=== PATIENT | female | born 1975 | race Caucasian/White ===

== ENCOUNTER 2017-08-31 09:35 | Emergency (ER) | payer OTHER ==
[2017-08-31] MEDS ORDERED: RX INFO: IV CONTRAST WAS GIVEN 1 EACH MISC MISCELLANE PRN (10:00)
[2017-08-31] MEDS ORDERED: SODIUM CHLORIDE 0.9% 1,000 ML IV STA (10:00)
--- NOTE | 2017-08-31 10:02 | ED ---
General Adult HPI - General Chief complaint: Vaginal Bleeding Stated complaint: Urogenital Time Seen by Provider: 08/31/17 09:47 Source: patient, RN notes reviewed Mode of arrival: ambulatory Limitations: no limitations - History of Present Illness Initial comments: 42-year-old female presents to the emergency department with a chief complaint of vaginal bleeding. Patient recently had a D&C done by a doctor out of [place] 2 weeks ago. Patient states she is having some vaginal bleeding. Patient states that initially following the procedure she had some bleeding seemed to get better but now it has worsened. She states she goes to the pad about every hour. She called the nurse and they referred her here. She states she does have some dizziness. She is a heart patient does take aspirin states she chronically of dizziness about but this seems different. She states that she has been to the hospital and sent for this before they sent her home she is here today because it just does not seem to get better. She denies any pain with this. Patient denies any recent fever, chills, shortness of breath, chest pain, back pain, abdominal pain, nausea vomiting, numbness or tingling, dysuria or hematuria, constipation or diarrhea, headaches or visual changes, or any other current symptoms. - Related Data Home Medications Medication Instructions Recorded Confirmed ALPRAZolam [Xanax] 2 mg PO TID PRN 07/16/14 08/31/17 Montelukast Sodium [Singulair] 10 mg PO HS 07/16/14 08/31/17 Ranitidine HCl [Zantac] 150 mg PO BID 07/16/14 08/31/17 Spironolactone [Aldactone] 12.5 mg PO DAILY 07/16/14 08/31/17 oxyCODONE HCL/ACETAMINOPHEN 1 tab PO Q6H PRN 07/16/14 08/31/17 [Percocet 10-325 mg] Albuterol Nebulized [Ventolin 2.5 mg INHALATION RT-TID 10/20/14 08/31/17 Nebulized] Budesonide [Pulmicort] 0.5 mg INHALATION RT-BID 11/24/14 08/31/17 Nitroglycerin Sl Tabs [Nitrostat] 0.4 mg SUBLINGUAL Q5M PRN 11/24/14 08/31/17 Albuterol Inhaler [Ventolin Hfa 2 puff INHALATION RT-Q4H PRN 08/31/17 08/31/17 Inhaler] Aspirin EC [Ecotrin Low Dose] 81 mg PO DAILY 08/31/17 08/31/17 Atorvastatin [Lipitor] 40 mg PO HS 08/31/17 08/31/17 Fluticasone Nasal [place] [Flonase 1 spray EA NOSTRIL BID 08/31/17 08/31/17 Nasal [place]] Ipratropium [place] 0.06%Nasal 2 spray EA NOSTRIL BID 08/31/17 08/31/17 [Atrovent Nasal 0.06%] Omalizumab [Xolair] 150 mg SQ Q14D 08/31/17 08/31/17 Sotalol [Betapace] 80 mg PO BID 08/31/17 08/31/17 Triamterene/Hydrochlorothiazid 1 cap PO DAILY 08/31/17 08/31/17 [Dyazide 37.5-25 Capsule] Vortioxetine Hydrobromide 5 mg PO DAILY 08/31/17 08/31/17 [Trintellix] Allergies Allergy/AdvReac Type Severity Reaction Status Date / Time codeine Allergy Rash/Hives Verified 08/31/17 10:03 fexofenadine HCl Allergy Rash/Hives Verified 08/31/17 10:03 [From Sybil] metronidazole [From Flagyl] Allergy Unknown Verified 08/31/17 10:03 mirtazapine [From Remeron] Allergy Rash/Hives Verified 08/31/17 10:03 pregabalin [From Lyrica] Allergy BLURRED Verified 08/31/17 10:03 VISION/HEADACHES Review of Systems ROS Statement: Those systems with pertinent positive or pertinent negative responses have been documented in the HPI. ROS Other: All systems not noted in ROS Statement are negative. Past Medical History Past Medical History: Asthma, Coronary Artery Disease (CAD), Chest Pain / Angina , Heart Failure, COPD, Fibromyalgia, GERD/Reflux, Hyperlipidemia, Sleep Apnea/ CPAP/BIPAP Additional Past Medical History / Comment(s): hx migraines, SOB, no CPAP yet- recent dx of sleep apnea History of Any Multi-Drug Resistant Organisms: None Reported Past Surgical History: AICD, Hysterectomy Additional Past Surgical History / Comment(s): defibrillator, D&C, lipoma removed left thigh, left breast lumpectomy, bladder sling Past Anesthesia/Blood Transfusion Reactions: No Reported Reaction Type of Cardiac Device: AICD Device Placement Date:: 10/04/2014 Past Psychological History: Anxiety Smoking Status: Current some day smoker Past Alcohol Use History: None Reported Past Drug Use History: None Reported - Past Family History Mother Family Medical History: No Reported History Father Family Medical History: Myocardial Infarction ([place]) General Exam - General Exam Comments Initial Comments: General: The patient is awake and alert, in no distress, and does not appear acutely ill. Eye: Pupils are equal, round and reactive to light, extra-ocular movements are intact; there is normal conjunctiva bilaterally. No signs of icterus. Ears, nose, mouth and throat: There are moist mucous membranes. Neck: The neck is supple, there is no tenderness. Cardiovascular: There is a regular rate and rhythm. No murmur, rub or gallop is appreciated. Respiratory: Lungs are clear to auscultation, respirations are non-labored, breath sounds are equal. No wheezes, stridor, rales, or rhonchi. Gastrointestinal: Soft, non-distended, non-tender abdomen without masses or organomegaly noted. There is no rebound or guarding present. No CVA tenderness. Bowel sounds are unremarkable. Back: There is no tenderness to palpation in the midline. There is no obvious deformity. No rashes noted. Musculoskeletal: Normal ROM, no tenderness, There is no pedal edema. There is no calf tenderness or swelling. Sensation intact. Pulses equal bilaterally 2+. Neurological: CN II-XII intact, There are no obvious motor or sensory deficits. Coordination appears grossly intact. Speech is normal. Skin: Skin is warm and dry and no rashes or lesions are noted. Psychiatric: Cooperative, appropriate mood & affect, normal judgment. Limitations: no limitations External exam: Present: normal external exam Speculum exam: Present: normal speculum exam, vaginal bleeding (Patient does appear to have sutures intact with a little bit of oozing from the suture site.) Course Vital Signs 08/31/17 08/31/17 09:40 11:03 Temperature 98.8 F Pulse Rate 80 91 Respiratory 18 18 Rate Blood Pressure 134/78 115/75 O2 Sat by Pulse 100 99 Oximetry Medical Decision Making - Medical Decision Making 42-year-old female presents for vaginal bleeding following a hysterectomy. At this time pelvic exam does show some mild oozing from the surgical incision site. At this time lab work is otherwise stable. This time the patient's urine is not suspicious and patient's symptoms are not suspicious for UTI. We will send urine for culture and follow-up as appropriate. We did discuss return parameters all questions. The patient stated that she understood and she is in agreement this plan. She will be discharged. - Lab Data Result diagrams: 08/31/17 10:04 08/31/17 10:04 Lab Results 08/31/17 08/31/17 08/31/17 Range/Units 10:04 10:04 10:04 WBC 16.0 H (3.8-10.6) k/uL RBC 4.35 (3.80-5.40) m/uL Hgb 14.3 (11.4-16.0) gm/dL Hct 42.5 (34.0-46.0) % MCV 97.9 (80.0-100.0) fL MCH 33.0 (25.0-35.0) pg MCHC 33.7 (31.0-37.0) g/dL RDW 13.4 (11.5-15.5) % Plt Count 382 (150-450) k/uL Neutrophils % 81 % Lymphocytes % 12 % Monocytes % 3 % Eosinophils % 3 % Basophils % 1 % Neutrophils # 13.0 H (1.3-7.7) k/uL Lymphocytes # 2.0 (1.0-4.8) k/uL Monocytes # 0.4 (0-1.0) k/uL Eosinophils # 0.5 (0-0.7) k/uL Basophils # 0.1 (0-0.2) k/uL PT (9.0-12.0) sec INR (<1.2) APTT (22.0-30.0) sec Sodium 140 (137-145) mmol/L Potassium 4.2 (3.5-5.1) mmol/L Chloride 106 (98-107) mmol/L Carbon Dioxide 25 (22-30) mmol/L Anion Gap 9 mmol/L BUN 22 H (7-17) mg/dL Creatinine 0.83 (0.52-1.04) mg/dL Est GFR (MDRD) Af Amer >60 (>60 ml/min/1.73 sqM) Est GFR (MDRD) Non-Af >60 (>60 ml/min/1.73 sqM) Glucose 106 H (74-99) mg/dL Calcium 10.0 (8.4-10.2) mg/dL Total Bilirubin 0.8 (0.2-1.3) mg/dL AST 26 (14-36) U/L ALT 38 (9-52) U/L Alkaline Phosphatase 64 (38-126) U/L Total Protein 7.7 (6.3-8.2) g/dL Albumin 4.3 (3.5-5.0) g/dL Urine Color Urine Appearance (Clear) Urine pH (5.0-8.0) Ur Specific [place] (1.001-1.035) Urine Protein (Negative) Urine Glucose (UA) (Negative) Urine Ketones (Negative) Urine Blood (Negative) Urine Nitrite (Negative) Urine Bilirubin (Negative) Urine Urobilinogen (<2.0) mg/dL Ur Leukocyte Esterase (Negative) Urine RBC (0-5) /hpf Urine WBC (0-5) /hpf Ur Squamous Epith Cells (0-4) /hpf Urine Mucus (None) /hpf Blood Type O Positive Blood Type Recheck O Pos Antibody Screen NEGATIVE Spec Expiration Date 09/03/2017230308/31/17 08/31/17 Range/Units 10:04 11:01 WBC (3.8-10.6) k/uL RBC (3.80-5.40) m/uL Hgb (11.4-16.0) gm/dL Hct (34.0-46.0) % MCV (80.0-100.0) fL MCH (25.0-35.0) pg MCHC (31.0-37.0) g/dL RDW (11.5-15.5) % Plt Count (150-450) k/uL Neutrophils % % Lymphocytes % % Monocytes % % Eosinophils % % Basophils % % Neutrophils # (1.3-7.7) k/uL Lymphocytes # (1.0-4.8) k/uL Monocytes # (0-1.0) k/uL Eosinophils # (0-0.7) k/uL Basophils # (0-0.2) k/uL PT 10.0 (9.0-12.0) sec INR 1.0 (<1.2) APTT 23.6 (22.0-30.0) sec Sodium (137-145) mmol/L Potassium (3.5-5.1) mmol/L Chloride (98-107) mmol/L Carbon Dioxide (22-30) mmol/L Anion Gap mmol/L BUN (7-17) mg/dL Creatinine (0.52-1.04) mg/dL Est GFR (MDRD) Af Amer (>60 ml/min/1.73 sqM) Est GFR (MDRD) Non-Af (>60 ml/min/1.73 sqM) Glucose (74-99) mg/dL Calcium (8.4-10.2) mg/dL Total Bilirubin (0.2-1.3) mg/dL AST (14-36) U/L ALT (9-52) U/L Alkaline Phosphatase (38-126) U/L Total Protein (6.3-8.2) g/dL Albumin (3.5-5.0) g/dL Urine Color Light Yellow Urine Appearance Clear (Clear) Urine pH 6.0 (5.0-8.0) Ur Specific [place] 1.024 (1.001-1.035) Urine Protein Negative (Negative) Urine Glucose (UA) Negative (Negative) Urine Ketones Negative (Negative) Urine Blood Large H (Negative) Urine Nitrite Negative (Negative) Urine Bilirubin Negative (Negative) Urine Urobilinogen <2.0 (<2.0) mg/dL Ur Leukocyte Esterase Large H (Negative) Urine RBC 6 H (0-5) /hpf Urine WBC 8 H (0-5) /hpf Ur Squamous Epith Cells 5 H (0-4) /hpf Urine Mucus Rare H (None) /hpf Blood Type Blood Type Recheck Antibody Screen Spec Expiration Date - Radiology Data Radiology results: report reviewed, image reviewed Disposition Clinical Impression: Vaginal bleeding Disposition: HOME SELF-CARE Condition: Stable Instructions: Dysfunctional Uterine Bleeding (ED) Additional Instructions: Please use medication as discussed. Please follow up with family doctor if symptoms have not improved over the next two days. Please return to the emergency room if your symptoms increase or worsen or for any other concerns. Please follow up with your OBGYN. Referrals: Daniel English DO [Primary Care Provider] - 1-2 days Time of Disposition: 11:39
[2017-08-31 10:21] LABS: Basophils # (A) 0.1 k/uL (0-0.2); Basophils % (A) 1 %; CH 32.6; CHCM 33.5; Eosinophils # (A) 0.5 k/uL (0-0.7); Eosinophils % (A) 3 %; HCT 42.5 % (34.0-46.0); HDW 2.06; HGB 14.3 gm/dL (11.4-16.0); Luc # (Auto) 0.08; Luc % (Auto) 1; Lymphocytes % (A) 12 %; MCHC 33.7 g/dL (31.0-37.0); MCV 97.9 fL (80.0-100.0); Mean Platelet Volume 6.8; Monocytes # (A) 0.4 k/uL (0-1.0); Monocytes % (A) 3 %; Neutrophils % (A) 81 %; RBC 4.35 m/uL (3.80-5.40); RDW 13.4 % (11.5-15.5); WBC (Perox) 15.35
[2017-08-31 10:24] LABS: Partial Thromboplastin Time 23.6 sec (22.0-30.0)
[2017-08-31 10:27] LABS: ALT 38 U/L (9-52); AST 26 U/L (14-36); Alkaline Phosphatase 64 U/L (38-126); Anion Gap 9 mmol/L; Blood Urea Nitrogen 22 mg/dL (7-17); Carbon Dioxide 25 mmol/L (22-30); Chloride 106 mmol/L (98-107); Glucose 106 mg/dL (74-99); Non-African American GFR(MDRD) >60 (>60 ml/min/1.73 sqM); Potassium 4.2 mmol/L (3.5-5.1); Sodium 140 mmol/L (137-145); Total Bilirubin 0.8 mg/dL (0.2-1.3); Total Protein 7.7 g/dL (6.3-8.2)
--- NOTE | 2017-08-31 10:45 | CT ---
EXAMINATION TYPE: CT abdomen pelvis w con DATE OF EXAM: 08/31/2017 COMPARISON: 05/17/2016 HISTORY: S/P hysterectomy, bleeding and cramping CT DLP: 485.20 mGycm Automated exposure control for dose reduction was used. CONTRAST: CT scan of the abdomen pelvis is performed with IV Contrast, patient injected with 100 mL of Omnipaqu e 300. FINDINGS- LUNG BASES-there are a couple of 2 mm right lower lobe pulmonary nodules which are stable from the pr evious exam. Cardiac leads noted. LIVER/GB-tiny hypodensity involving the dome of the liver is too small to characterize. PANCREAS- No gross abnormality is seen. SPLEEN- No gross abnormality is seen. ADRENALS- No gross abnormality is seen. KIDNEYS/BLADDER- no hydronephrosis or nephrolithiasis. There is a somewhat heterogeneous enhancement pattern kidneys particularly lower pole right kidney is sometimes be associated with pyelonephritis c orrelate with urinalysis.. BOWEL- no bowel dilatation. Normal appendix. LYMPH NODES- No greater than 1cm abdominal or pelvic lymph nodes are appreciated. OSSEOUS STRUCTURES- No significant abnormality is seen. OTHER- there is a small fat-containing periumbilical hernia. Findings suggest previous hysterectomy. No abnormal fluid collections. IMPRESSION- 1. Slight ill attenuation focally involving the left colon within the pericolonic fat without evidenc e of discrete wall thickening. A mild colitis or diverticulitis not excluded. 2. Nonspecific somewhat heterogeneous enhancement pattern of the kidneys can occasionally be associat ed with pyelonephritis. Finding could be technical. Correlate with urinalysis. 3. Findings suggest previous hysterectomy.
[2017-08-31 11:24] LABS: Appearance,Urine Clear (Clear); Bilirubin,Urine Negative (Negative); Glucose,Urine (UA) Negative (Negative); Ketones,Urine Negative (Negative); Leukocyte Esterase,Urine Large (Negative); Mucus,Urine Rare /hpf; Nitrite,Urine Negative (Negative); Particle Count 2008; Protein,Urine Negative (Negative); RBC,Urine 6 /hpf (0-5); Specific Gravity,Urine 1.024 (1.001-1.035); Squamous Epithelial Cell,Urine 5 /hpf (0-4); UA Billing (MACRO vs. MICRO) MICRO; Urobilinogen,Urine <2.0 mg/dL (<2.0); WBC,Urine 8 /hpf (0-5)
[2017-08-31 11:47] VITALS: BP 117/73; PULSE 62; RESP 16; TEMP 98.7
== END 2017-08-31 11:57 | disposition home or self-care (01) ==
LOC: EC 09:35
DX: N93.9 Abnormal uterine and vaginal bleeding, unspecified (principal); R42 Dizziness and giddiness; J44.9 Chronic obstructive pulmonary disease, unspecified; I25.119 Atherosclerotic heart disease of native coronary artery with unspecified angina pectoris; I50.9 Heart failure, unspecified; I11.0 Hypertensive heart disease with heart failure; M79.7 Fibromyalgia; K21.9 Gastro-esophageal reflux disease without esophagitis; E78.5 Hyperlipidemia, unspecified; G47.30 Sleep apnea, unspecified; Z99.89 Dependence on other enabling machines and devices; F41.9 Anxiety disorder, unspecified; F17.200 Nicotine dependence, unspecified, uncomplicated; Z79.51 Long term (current) use of inhaled steroids; Z79.82 Long term (current) use of aspirin; Z79.899 Other long term (current) drug therapy; Z88.5 Allergy status to narcotic agent; Z88.1 Allergy status to other antibiotic agents; Z88.8 Allergy status to other drugs, medicaments and biological substances; Z90.710 Acquired absence of both cervix and uterus
CPT/HCPCS: 36415; 86900; 86901; 80053; 85025; 85610; 85730; 86850; 81001; 87086; 74177; 99284; 96360; Q9967

== ENCOUNTER → 2018-01-05 | Outpatient (CLI) | payer OTHER ==
--- NOTE | 2018-01-05 13:16 | XR ---
EXAMINATION TYPE: XR chest 2V DATE OF EXAM: 01/05/2018 COMPARISON: Prior chest x-ray 11/24/2014 HISTORY: Shortness of breath and cough TECHNIQUE: Frontal and lateral views of the chest are obtained. FINDINGS: Generator is present in the left pectoral region, there are leads in the right ventricle a nd atrium, coronary sinus as on prior exam. No pneumothorax or pleural effusion. Cardiac mediastinal silhouette, pulmonary vascularity and brooks within normal limits. There are prominent lung volumes. Mi nimal patchy density at the costophrenic angle on the left could reflect atelectasis, correlate to ex clude airspace disease. IMPRESSION: Suspect atelectasis or scar, correlate to exclude pneumonia.
== END | disposition home or self-care (01) ==
LOC: RADXRMAIN 11:52
PROVIDERS: ATTEND Internal Medicine Pulmonary Disease
DX: R06.00 Dyspnea, unspecified (principal); J44.9 Chronic obstructive pulmonary disease, unspecified; J45.909 Unspecified asthma, uncomplicated
CPT/HCPCS: 71046

== ENCOUNTER → 2018-03-31 | Outpatient (CLI) | payer OTHER ==
[2018-03-31 12:02] LABS: HGB 14.7 gm/dL (11.4-16.0); MCH 33.4 pg (25.0-35.0); MCHC 33.6 g/dL (31.0-37.0); MCV 99.5 fL (80.0-100.0); Mean Platelet Volume 6.5; Platelet Count 296 k/uL (150-450); RBC 4.42 m/uL (3.80-5.40); RDW 13.1 % (11.5-15.5)
[2018-03-31 12:13] LABS: Anion Gap 10 mmol/L; Blood Urea Nitrogen 25 mg/dL (7-17); Carbon Dioxide 28 mmol/L (22-30); Chloride 104 mmol/L (98-107); Glucose 94 mg/dL (74-99); Potassium 4.5 mmol/L (3.5-5.1); Sodium 142 mmol/L (137-145)
== END | disposition home or self-care (01) ==
LOC: LABWHC1 11:08
PROVIDERS: ATTEND Internal Medicine Cardiovascular Disease
DX: E78.00 Pure hypercholesterolemia, unspecified (principal); I10 Essential (primary) hypertension; I47.2 Ventricular tachycardia; I50.42 Chronic combined systolic (congestive) and diastolic (congestive) heart failure
CPT/HCPCS: 36415; 80048; 83880; 84443; 85027

== ENCOUNTER → 2018-11-23 | Outpatient (CLI) | payer OTHER ==
[2018-11-23 10:41] LABS: HCT 45.2 % (34.0-46.0); HGB 14.7 gm/dL (11.4-16.0); MCH 31.8 pg (25.0-35.0); MCHC 32.4 g/dL (31.0-37.0); Mean Platelet Volume 6.7; Platelet Count 330 k/uL (150-450); RBC 4.61 m/uL (3.80-5.40); RDW 12.8 % (11.5-15.5); WBC 6.8 k/uL (3.8-10.6)
[2018-11-23 16:36] LABS: Anion Gap 8.1 mmol/L (4.00-12.00); Calcium 9.6 mg/dL (8.7-10.3); Carbon Dioxide 26.9 mmol/L (21.6-31.8); LDL Cholesterol,Calculated 94.2 mg/dL (0.0-131.0); VLDL Calculation 22.8 mg/dL (5.00-40.00)
== END | disposition home or self-care (01) ==
LOC: LABWHC1 09:15
PROVIDERS: ATTEND Internal Medicine Cardiovascular Disease
DX: E78.00 Pure hypercholesterolemia, unspecified (principal); I50.22 Chronic systolic (congestive) heart failure; R06.02 Shortness of breath; R53.83 Other fatigue
CPT/HCPCS: 36415; 80048; 80061; 83880; 85027

== ENCOUNTER → 2019-01-10 | Outpatient (CLI) | payer OTHER ==
[2019-01-10 16:16] LABS: Basophils % (A) 1 %; Eosinophils # (A) 0.4 k/uL (0-0.7); Eosinophils % (A) 5 %; HCT 43.8 % (34.0-46.0); HGB 14.1 gm/dL (11.4-16.0); Lymphocytes % (A) 28 %; MCH 31.4 pg (25.0-35.0); MCHC 32.2 g/dL (31.0-37.0); MCV 97.6 fL (80.0-100.0); Mean Platelet Volume 6.8; Monocytes # (A) 0.3 k/uL (0-1.0); Monocytes % (A) 4 %; Neutrophils # (A) 4.4 k/uL (1.3-7.7); Neutrophils % (A) 61 %; Platelet Count 328 k/uL (150-450); RBC 4.49 m/uL (3.80-5.40); RDW 12.8 % (11.5-15.5); WBC 7.3 k/uL (3.8-10.6)
[2019-01-10 22:46] LABS: Iron Saturation 22.97 (12.00-45.00)
[2019-01-10 22:53] LABS: Albumin 4.4 g/dL (3.80-4.90); Albumin/Globulin Ratio 2.2 (1.60-3.17); Anion Gap 7.5 mmol/L (4.00-12.00); Calcium 9.4 mg/dL (8.7-10.3); Carbon Dioxide 25.5 mmol/L (21.6-31.8); Total Bilirubin 0.3 mg/dL (0.3-1.2); Total Protein 6.4 g/dL (6.2-8.2)
== END | disposition home or self-care (01) ==
LOC: LABWHC1 15:50
PROVIDERS: ATTEND Internal Medicine Hematology & Oncology
DX: D50.9 Iron deficiency anemia, unspecified (principal); D47.2 Monoclonal gammopathy; R31.9 Hematuria, unspecified
CPT/HCPCS: 36415; 80053; 82607; 82728; 82746; 83540; 83550; 85025

== ENCOUNTER → 2019-02-15 | Outpatient (CLI) | payer OTHER ==
--- NOTE | 2019-02-15 13:44 | CT ---
EXAMINATION TYPE: CT chest wo con DATE OF EXAM: 02/15/2019 COMPARISON: None HISTORY: Severe persistent asthma, coughing up blood CT DLP: 652.4 mGycm, Automated exposure control for dose reduction was used. CONTRAST: Performed injected with 0 mL of Isovue 300. TECHNIQUE: Axial images were obtained at 5 mm thick sections. Reconstructed images are reviewed on [employer] computer in the coronal plane. FINDINGS: Portion of the thyroid visualized is normal. No suspicious lung nodules or focal infiltrates are present. Tracheobronchial tree is visualized appe ars normal No enlarged mediastinal or hilar adenopathy is evident. The ascending aorta diameter at the level o f the main pulmonary artery is 2.9 cm. The main pulmonary artery diameter at the bifurcation is 2.[address] sections are obtained through the upper abdomen. Abdomen is essentially unremarkable. IMPRESSIONS: 1. No acute abnormality CT thorax
== END ==
LOC: RADCTMAIN 08:10
PROVIDERS: ATTEND Internal Medicine Pulmonary Disease
DX: J45.51 Severe persistent asthma with (acute) exacerbation (principal); E66.01 Morbid (severe) obesity due to excess calories
CPT/HCPCS: 71250

== ENCOUNTER → 2019-05-01 | Outpatient (CLI) | payer OTHER ==
[2019-05-01 14:35] LABS: Basophils % (A) 0 %; Eosinophils % (A) 0 %; HCT 41.1 % (34.0-46.0); HGB 13.4 gm/dL (11.4-16.0); Lymphocytes % (A) 26 %; MCHC 32.5 g/dL (31.0-37.0); MCV 95.2 fL (80.0-100.0); Mean Platelet Volume 6.9; Monocytes # (A) 0.4 k/uL (0-1.0); Monocytes % (A) 5 %; Neutrophils % (A) 67 %; Platelet Count 366 k/uL (150-450); RBC 4.32 m/uL (3.80-5.40); RDW 14.4 % (11.5-15.5); WBC 7.6 k/uL (3.8-10.6)
[2019-05-01 18:30] LABS: Iron Saturation 37.76 (12.00-45.00)
[2019-05-01 18:35] LABS: African American GFR (CKD) 79.3 (60.0-200.0); Albumin 4.4 g/dL (3.80-4.90); Albumin/Globulin Ratio 2.2 (1.60-3.17); Anion Gap 9.4 mmol/L (4.00-12.00); Calcium 9.5 mg/dL (8.7-10.3); Carbon Dioxide 25.6 mmol/L (21.6-31.8); LDL Cholesterol,Calculated 122.6 mg/dL (0.0-131.0); Potassium 4.4 mmol/L (3.5-5.5); Total Bilirubin 0.5 mg/dL (0.2-1.2); Total Protein 6.4 g/dL (6.2-8.2); VLDL Calculation 27.4 mg/dL (5.00-40.00)
[2019-05-01 18:44] LABS: T4, Free (Free Thyroxine) 1.2 ng/dL (0.80-1.80)
[2019-05-01 18:59] LABS: Folate, Serum >24.0 ng/mL
== END | disposition home or self-care (01) ==
LOC: LABWHC1 13:42
PROVIDERS: ATTEND Internal Medicine Hematology & Oncology
DX: D50.9 Iron deficiency anemia, unspecified (principal); D47.2 Monoclonal gammopathy; R31.9 Hematuria, unspecified; E78.00 Pure hypercholesterolemia, unspecified; I42.8 Other cardiomyopathies; R07.89 Other chest pain; I50.22 Chronic systolic (congestive) heart failure; Z95.810 Presence of automatic (implantable) cardiac defibrillator
CPT/HCPCS: 36415; 80053; 80061; 82607; 82728; 82746; 83540; 83550; 84439; 84443; 84481; 85025

== ENCOUNTER → 2019-09-04 | Outpatient (CLI) | payer OTHER ==
[2019-09-04 12:47] LABS: Basophils % (A) 0 %; Eosinophils % (A) 0 %; HCT 42.6 % (34.0-46.0); HGB 14.1 gm/dL (11.4-16.0); Lymphocytes # (A) 1.9 k/uL (1.0-4.8); Lymphocytes % (A) 20 %; MCH 31.7 pg (25.0-35.0); MCHC 33.1 g/dL (31.0-37.0); MCV 95.8 fL (80.0-100.0); Mean Platelet Volume 6.3; Monocytes # (A) 0.4 k/uL (0-1.0); Monocytes % (A) 4 %; Neutrophils # (A) 7.2 k/uL (1.3-7.7); Neutrophils % (A) 75 %; Platelet Count 341 k/uL (150-450); RBC 4.44 m/uL (3.80-5.40); RDW 13.3 % (11.5-15.5); WBC 9.6 k/uL (3.8-10.6)
[2019-09-04 18:31] LABS: % Iron Saturation 31.36 (12.00-45.00); ALT 16 U/L (8-44); AST 19 U/L (13-35); African American GFR (CKD) 78.8 (60.0-200.0); Alkaline Phosphatase 74 U/L (41-126); Calcium 9.8 mg/dL (8.7-10.3); Carbon Dioxide 28.2 mmol/L (21.6-31.8); Chloride 104 mmol/L (96-109); Globulin 2.3 g/dL (1.6-3.3); Glucose 103 mg/dL (70-110); Iron 90 ug/dL (50-170); Potassium 3.9 mmol/L (3.5-5.5); Sodium 139 mmol/L (135-145); Total Bilirubin 0.6 mg/dL (0.2-1.2); Total Iron Binding Capacity 287 ug/dL (228-460); Total Protein 6.9 g/dL (6.2-8.2)
[2019-09-04 19:15] LABS: Ferritin 341.6 ng/mL (10.0-291.0); Folate, Serum >24.0 ng/mL
== END | disposition home or self-care (01) ==
LOC: LABWHC1 11:55
PROVIDERS: ATTEND Internal Medicine Hematology & Oncology
DX: D50.9 Iron deficiency anemia, unspecified (principal); D47.2 Monoclonal gammopathy; R31.9 Hematuria, unspecified
CPT/HCPCS: 36415; 80053; 82607; 82728; 82746; 83540; 83550; 85025

== ENCOUNTER → 2019-11-05 | Outpatient (CLI) | payer OTHER ==
[2019-11-05 12:47] LABS: HGB 13.9 gm/dL (11.4-16.0); MCHC 33.8 g/dL (31.0-37.0); MCV 97.6 fL (80.0-100.0); Mean Platelet Volume 6.8; Platelet Count 365 k/uL (150-450); RBC 4.21 m/uL (3.80-5.40); WBC 11.3 k/uL (3.8-10.6)
[2019-11-05 21:49] LABS: African American GFR (CKD) 78.8 (60.0-200.0); Anion Gap 7.9 mmol/L (4.00-12.00); Calcium 10.1 mg/dL (8.7-10.3); Carbon Dioxide 28.1 mmol/L (21.6-31.8); Potassium 4.4 mmol/L (3.5-5.5)
== END | disposition home or self-care (01) ==
LOC: LABWHC1 11:32
PROVIDERS: ATTEND Internal Medicine Cardiovascular Disease
DX: I51.9 Heart disease, unspecified (principal); R06.02 Shortness of breath
CPT/HCPCS: 36415; 80048; 85027

== ENCOUNTER → 2019-12-28 | Outpatient (CLI) | payer OTHER | END | disposition home or self-care (01) | LOC: LABWHC1 11:54 | PROVIDERS: ATTEND Urology | DX: N20.0 Calculus of kidney (principal) | CPT/HCPCS: 36415; 84520 ==

== ENCOUNTER → 2020-09-23 | Outpatient (CLI) | payer OTHER ==
[2020-09-23 11:06] LABS: HCT 47.7 % (34.0-46.0); HGB 15.7 gm/dL (11.4-16.0); MCH 31.2 pg (25.0-35.0); MCHC 32.9 g/dL (31.0-37.0); MCV 94.8 fL (80.0-100.0); Mean Platelet Volume 6.5; Platelet Count 364 k/uL (150-450); RBC 5.03 m/uL (3.80-5.40); RDW 13.2 % (11.5-15.5); WBC 13.1 k/uL (3.8-10.6)
[2020-09-23 20:51] LABS: African American GFR (CKD) 78.2 (60.0-200.0); Anion Gap 11.6 mmol/L (4.00-12.00); Calcium 10.3 mg/dL (8.7-10.3); Carbon Dioxide 24.4 mmol/L (21.6-31.8); Chol/HDL Ratio 3.6; LDL Cholesterol,Calculated 93.2 mg/dL (0.0-131.0); Non-African American GFR(CKD) 67.5 (60.0-200.0); Potassium 4.2 mmol/L (3.5-5.5); VLDL Calculation 23.8 mg/dL (5.00-40.00)
[2020-09-23 20:59] LABS: T4, Free (Free Thyroxine) 1.2 ng/dL (0.80-1.80)
== END | disposition home or self-care (01) ==
LOC: LABWHC1 09:53
PROVIDERS: ATTEND Internal Medicine Cardiovascular Disease
DX: E11.9 Type 2 diabetes mellitus without complications (principal); E78.5 Hyperlipidemia, unspecified; I42.8 Other cardiomyopathies; I50.22 Chronic systolic (congestive) heart failure; R00.0 Tachycardia, unspecified
CPT/HCPCS: 36415; 80048; 80061; 84439; 84443; 84481; 85027

== ENCOUNTER → 2022-03-16 | Outpatient (CLI) | payer OTHER ==
[2022-03-16 18:38] LABS: African American GFR (CKD) 51.7 (60.0-200.0); Albumin 4.7 g/dL (3.8-4.9); Albumin/Globulin Ratio 1.47 (1.60-3.17); Anion Gap 16.8 mmol/L (10.00-18.00); BUN/Creat Ratio 25.5 Ratio (12.00-20.00); Blood Urea Nitrogen 35.7 mg/dL (9.0-27.0); Calcium 10.1 mg/dL (8.7-10.3); Carbon Dioxide 29.2 mmol/L (20.0-27.5); Globulin 3.2 g/dL (1.6-3.3); Non-African American GFR(CKD) 44.6 (60.0-200.0); Potassium 4.3 mmol/L (3.5-5.5); Total Bilirubin 0.7 mg/dL (0.30-1.20); Total Protein 7.9 g/dL (6.2-8.2)
[2022-03-16 19:14] LABS: Basophils # (A) 0.06 X 10*3/uL (0.00-0.10); Basophils % (A) 0.5 %; Eosinophils # (A) 0.04 X 10*3/uL (0.04-0.35); Eosinophils % (A) 0.3 %; HCT 48.1 % (37.2-46.3); HGB 16.3 g/dL (12.0-15.0); Immature Grans, Automated 4.8 %; Lymphocytes % (A) 35.3 %; MCH 32.1 pg (27.0-32.0); MCHC 33.9 g/dL (32.0-37.0); MCV 94.7 fL (80.0-97.0); Mean Platelet Volume 9.4 fL (9.5-12.2); Monocytes # (A) 0.93 X 10*3/uL (0.20-1.00); Monocytes % (A) 7.5 %; NRBC Per 100 WBC 0.4 /100 WBCS (0.0-0.0); Neutrophils # (A) 6.45 X 10*3/uL (1.80-7.70); Neutrophils % (A) 51.6 %; Platelet Count 375 X 10*3/uL (140-440); RBC 5.08 X 10*6/uL (4.10-5.20); RBC Morphology NORMAL; RDW 13.7 % (11.5-14.5); WBC 12.48 X 10*3/uL (4.50-10.00)
[2022-03-17 11:16] LABS: Alternaria alternata IgE <0.10 kU/L; Aspergillus fumagatus IgE <0.10 kU/L; Birch IgE <0.10 kU/L; Cat Epith & Dander IgE <0.10 kU/L; Cladosporian herbarum IgE <0.10 kU/L; Cockroach IgE <0.10 kU/L; Dermato. farinae IgE 0.73 kU/L; Dog Dander IgE 0.64 kU/L; Maple (Box Elder) IgE <0.10 kU/L; Oak IgE <0.10 kU/L; Ragweed,Common IgE <0.10 kU/L; Red Top (Bentgrass) IgE <0.10 kU/L
[2022-03-17 20:33] LABS: Elm IgE <0.10 kU/L
== END | disposition home or self-care (01) ==
LOC: LABWHC1 11:51
PROVIDERS: ATTEND Internal Medicine Nephrology
DX: I12.9 Hypertensive chronic kidney disease with stage 1 through stage 4 chronic kidney disease, or unspecified chronic kidney disease (principal); I50.40 Unspecified combined systolic (congestive) and diastolic (congestive) heart failure; J45.909 Unspecified asthma, uncomplicated; T78.2XXA Anaphylactic shock, unspecified, initial encounter; N18.2 Chronic kidney disease, stage 2 (mild)
CPT/HCPCS: 36415; 80053; 82785; 83735; 83970; 85025; 86003

== ENCOUNTER → 2022-09-01 | Outpatient (CLI) | payer OTHER ==
--- NOTE | 2022-09-01 12:37 | CT ---
EXAMINATION TYPE: CT chest wo con CT DLP: 884 mGycm, Automated exposure control for dose reduction was used. DATE OF EXAM: 09/01/2022 12:29 PM COMPARISON: Multiple CTs of the chest with most recent on 02/15/2019 CLINICAL INDICATION:Female, 47 years old with history of K92.0 HEMATEMESIS; Trouble breathing TECHNIQUE: Multiple axial images were obtained through the chest. Sagittal and coronal reformats were created for review. Contrast used: none Oral contrast used: none. FINDINGS: LUNGS/ PLEURA: No evidence of focal consolidation, pneumothorax or pleural effusion. Right intrafissu ral lymph node noted. Lung lines are present with suspected streaky curvilinear atelectasis/scarring which extends to the pleura most pronounced in the lung bases. AIRWAY: Patent and unremarkable. HEART: Heart is mildly enlarged for size. MEDIASTINUM: No gross evidence of adenopathy. VASCULATURE: No aortic aneurysm. MUSCULOSKELETAL: No acute osseous abnormalities, multiple subacute rib fractures are suggested on the right mid and right ribs 3, 4 with some callus formation. SOFT TISSUES/LYMPH NODES: Left chest wall cardiac conduction device with leads terminating in the rig ht ventricle and right atrium. LOWER NECK: No significant findings. UPPER ABDOMEN: No significant findings. IMPRESSION: 1. No evidence for acute infectious/inflammatory process or evidence for mass. Some atelectasis ascencio ges are thought to be present and may be due to low lung volumes. 2. Mild cardiomegaly. 3. Subacute right ribs 3 and 4 anterior fractures suggested.
== END | disposition home or self-care (01) ==
LOC: RADCTMAIN 11:50
PROVIDERS: ATTEND Internal Medicine Pulmonary Disease
DX: J98.11 Atelectasis (principal); K92.0 Hematemesis; I51.7 Cardiomegaly
CPT/HCPCS: 71250

== ENCOUNTER → 2023-01-03 | Outpatient (CLI) | payer OTHER ==
[2023-01-03 14:50] LABS: African American GFR (CKD) 56.2 (60.0-200.0); Anion Gap 13.2 mmol/L (10.00-18.00); BUN/Creat Ratio 23.77 Ratio (12.00-20.00); Blood Urea Nitrogen 30.9 mg/dL (9.0-27.0); Calcium 8.9 mg/dL (8.7-10.3); Carbon Dioxide 21.8 mmol/L (20.0-27.5); Non-African American GFR(CKD) 48.5 (60.0-200.0); Potassium 4.6 mmol/L (3.5-5.5)
== END | disposition home or self-care (01) ==
LOC: LABWHC1 07:21
PROVIDERS: ATTEND Family Medicine
DX: N17.9 Acute kidney failure, unspecified (principal)
CPT/HCPCS: 36415; 80048

== ENCOUNTER → 2023-04-21 | Outpatient (CLI) | payer OTHER ==
--- NOTE | 2023-04-21 09:32 | XR ---
EXAM TYPE: LUMBAR SPINE X RAY SERIES COMPARISON: NONE HISTORY: Pain TECHNIQUE: 4 views are submitted. FINDINGS: Alignment is anatomic. The pedicles are intact. The transverse processes are intact. There is no s pondylolysis or spondylolisthesis. There is severe facet arthropathy L4-5 and L5-S1. Mild anterior h ypertrophic spurring is seen with fairly well-maintained disc spaces in the lumbar spine. Moderate de generative disc disease lower thoracic spine. IMPRESSION: 1. Advanced facet arthropathy L4-5 and L5-S1. Foraminal encroachment L5-S1 suspected. Consider MRI fo llow-up suggested. 2. Moderate degenerative disc disease lower thoracic spine.
== END | disposition home or self-care (01) ==
LOC: RADXRMAIN 08:58
PROVIDERS: ATTEND Physical Medicine & Rehabilitation
DX: M47.817 Spondylosis without myelopathy or radiculopathy, lumbosacral region (principal); M51.34 Other intervertebral disc degeneration, thoracic region
CPT/HCPCS: 72110